=== PATIENT | female | born 1955 | race Caucasian/White ===

== ENCOUNTER 2017-02-21 20:04 | Emergency (ER) | payer BC ==
[~2017-02-21] VITALS: Ht 160 cm; Wt 81.6 kg
[~2017-02-21 20:04] MED LIST: CLOP75TA28; METO50TA2
--- NOTE | 2017-02-21 20:37 | Diagnostic Imaging Report ---
INDICATION: Right-sided headaches Noncontrast brain CT is performed with comparison to 10/19/16. There are mild atrophic changes. There were no extra-axial fluid collections. No intracranial hemorrhage. No intracranial mass or mass effect. No midline shift. The ventricles are normal in size and position. There is no acute parenchymal abnormality in the brain. Calvarial windows were unremarkable. IMPRESSION: Mild chronic changes with no acute intracranial abnormality. Dictated by: Dictated on workstation # [id number]
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
[2017-02-21] MEDS ORDERED: cloNIDine 0.2 MG (CATAPRES) TAB PO ONE (20:45)
[2017-02-21 20:54] VITALS: BP 172/72
[2017-02-21] MEDS ORDERED: ACETAMINOPHEN 500 MG TAB (TYLENOL) PO ONE (21:00)
[2017-02-21 21:25] VITALS: BP 144/63
--- OUTSIDE RECORDS SUMMARY | 2017-03-29 05:33 | XMS REPORT ---
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 Name Role Phone ANIKA GODWIN Unavailable PROBLEMS Type Condition ICD9-CM Code [id number] Code Onset Dates Condition Status SNOMED Code Assessment Contact dermatitis due to plants, except food, unspecified contact dermatitis type L25.5 Jul, Active [id number] ALLERGIES Substance Reaction Event Type Date Status Valium Unknown Drug Allergy Jul, Active SulfADIAZINE Unknown Drug Allergy Jul, Active Pravastatin Sodium Unknown Drug Allergy Jul, Active Penicillin G Sodium Unknown Drug Allergy Jul, Active SOCIAL HISTORY No smoking Hx information available PLAN OF CARE VITAL SIGNS Height 63 in 2016-07-31 Weight 174.4 lbs 2016-07-31 Heart Rate 84 bpm 2016-07-31 Respiratory Rate 22 2016-07-31 BMI 30.89 kg/m2 2016-07-31 Blood pressure systolic 150 mmHg 2016-07-31 Blood pressure diastolic 78 mmHg 2016-07-31 MEDICATIONS Medication Instructions Dosage Frequency Start Date End Date Duration Status Metoprolol Succinate ER 50 MG Orally Once a day 1 tablet 24h Active PredniSONE 20 MG Orally 2 tablets daily x 5 days 1 tablet Jul, Jul, 5 days Active Plavix 75 MG Orally Once a day 1 tablet 24h Active Triamcinolone Acetonide 0.1 % Externally Twice a day 1 application to affected area 12h Jul, 5 days Active RESULTS No Results PROCEDURES Procedure Date Ordered Related Diagnosis Body Site Office Visit, New Pt., Level 3 Jul 31, 2016 IMMUNIZATIONS No Known Immunizations
== END 2017-02-21 21:24 | disposition home or self-care (01) ==
LOC: EDUNIT# 20:04 → ER 20:07
DX: G44.209 Tension-type headache, unspecified, not intractable (principal); F41.9 Anxiety disorder, unspecified; F43.9 Reaction to severe stress, unspecified; I10 Essential (primary) hypertension; I25.10 Atherosclerotic heart disease of native coronary artery without angina pectoris; F17.210 Nicotine dependence, cigarettes, uncomplicated; Z79.899 Other long term (current) drug therapy; Z79.02 Long term (current) use of antithrombotics/antiplatelets; Z95.1 Presence of aortocoronary bypass graft
CPT/HCPCS: 70450; 99283

== ENCOUNTER 2017-07-03 19:13 | Emergency (ER) | payer BC ==
[~2017-07-03] VITALS: Ht 160 cm; Wt 84.4 kg
[2017-07-03 20:24] LABS: BASOPHILS # (AUTO) 0.1 10^3/uL (0.0-0.1); BASOPHILS % (AUTO) 1 % (0-10); EOSINOPHILS # (AUTO) 0.2 10^3/uL (0.0-0.3); EOSINOPHILS % (AUTO) 1 % (0-10); LYMPHOCYTES # (AUTO) 3.4 X 10^3 (1.0-4.0); LYMPHOCYTES % (AUTO) 29 % (12-44); MEAN CORPUSCULAR HEMOGLOBIN 33 PG (25-34); MEAN CORPUSCULAR HGB CONC 34 G/DL (32-36); MEAN CORPUSCULAR VOLUME 96 FL (80-99); MEAN PLATELET VOLUME 9.8 FL (7.4-10.4); MONOCYTES % (AUTO) 9 % (0-12); NEUTROPHILS # (AUTO) 7.1 X 10^3 (1.8-7.8); NEUTROPHILS % (AUTO) 61 % (42-75); PLATELET COUNT 275 10^3/uL (130-400); RED BLOOD COUNT 4.32 10^6/uL (4.35-5.85); RED CELL DISTRIBUTION WIDTH 13.4 % (10.0-14.5); WHITE BLOOD COUNT 11.7 10^3/uL (4.3-11.0)
[2017-07-03 20:28] LABS: BILIRUBIN,URINE NEGATIVE (NEGATIVE); KETONES,URINE NEGATIVE (NEGATIVE); LEUKOCYTE ESTERASE ,URINE NEGATIVE (NEGATIVE); NITRITE,URINE NEGATIVE (NEGATIVE); PH,URINE 6.5 (5-9); PROTEIN,URINE NEGATIVE (NEGATIVE); UROBILINOGEN,URINE NORMAL (NORMAL)
--- NOTE | 2017-07-03 20:30 | Diagnostic Imaging Report ---
INDICATION: Overdose. TIME OF EXAM: 2021. COMPARISON: No previous study is available for comparison at this time. FINDINGS: Heart size and pulmonary vasculature are within normal limits, and the lungs are clear, bilaterally. IMPRESSION: Unremarkable chest. Dictated by: Dictated on workstation # [id number]
[2017-07-03 20:40] LABS: SQUAMOUS EPITHELIAL CELL,UR RARE /HPF
[2017-07-03 20:42] LABS: ALANINE AMINOTRANSFERASE 13 U/L (0-55); ALBUMIN 4.3 GM/DL (3.2-4.5); ANION GAP 13 MMOL/L (5-14); ASPARTATE AMINO TRANSFERASE 15 U/L (5-34); BILIRUBIN,TOTAL 0.5 MG/DL (0.1-1.0); BLOOD UREA NITROGEN 9 MG/DL (7-18); BUN/CREATININE RATIO 13; CALCIUM 9.3 MG/DL (8.5-10.1); CARBON DIOXIDE 21 MMOL/L (21-32); CHLORIDE 108 MMOL/L (98-107); CREATININE SERUM 0.71 MG/DL (0.60-1.30); GFR ESTIMATED > 60; GLUCOSE 95 MG/DL (70-105); POTASSIUM 3.7 MMOL/L (3.6-5.0); SODIUM 142 MMOL/L (135-145); TOTAL PROTEIN 7.6 GM/DL (6.4-8.2)
[2017-07-03 20:47] LABS: TROPONIN I < 0.30 NG/ML (<0.30)
[2017-07-03] MEDS ORDERED: ACETAMINOPHEN 500 MG TAB (TYLENOL) ONE (22:03)
[2017-07-03] MEDS ORDERED: ACETAMINOPHEN 500 MG TAB (TYLENOL) PO ONE (22:15)
--- NOTE | 2017-07-03 22:31 | ED Syncope ---
General Chief Complaint: Dizziness/Syncope Stated Complaint: BLACKED OUT Nursing Triage Note: Ambulatory to ED 10 with family with reports of "blacking out" [facility] Patient reports that she was sitting down, noticed that she started not feeling well and "blacked out, but came right back to." Patient reports that she remembers all events and denies hitting her head. Patient reports that she was able to ambulate after and went back home with family, but wanted to get checked out. Patient reports feeling somewhat normal now. Source of Information: Patient, Old Records Exam Limitations: No Limitations History of Present Illness Time Seen by Provider: 19:45 Initial Comments This 61-year-old woman presents to the emergency room with a near syncopal episode while at the [facility] tonight 20-30 minutes after taking her metoprolol dose. She normally takes a half tablet and reports the tablet she took this evening was larger than one half. It was approximately three fourths of a tablet. She is sensitive to medications and wonders if this larger dose may have caused the symptoms. She also reports eating poorly today, eating only one and a half donuts earlier in the day. She denies diabetes or problems with blood sugar. She feels much better now and is asymptomatic. She was also feeling well prior to the episode. She did not actually lose consciousness but came close. She bumped her head on the screen in front of her but denies any head injury. She does comment about having chest pain intermittently over the past 10 years on the right side. She relates this to COPD. She denies any change and denies chest pain at present. She does have a history of carotid stenosis which she gets checked every 6 months. She is actually due for repeat scans next week. She reports her last cardiac catheter was 3 years ago in [place] without interventions. She has a continuous tobacco user. She has a vasculopath who has aortic and iliac stents. Dr. Dwaine Whittaker is her primary care provider. Allergies and Home Medications Allergies Coded Allergies: hydrocodone (Verified Allergy, Unknown, 10/19/16) morphine (Verified Allergy, Unknown, 10/19/16) Uncoded Allergies: MULTIPLE ANTIBIOTICS (Allergy, Unknown, 10/19/16) Home Medications Clopidogrel Bisulfate 75 Mg Tablet, #30 (Reported) Metoprolol Tartrate 50 Mg Tablet, #60 (Reported) Constitutional: no symptoms reported EENTM: no symptoms reported Respiratory: see HPI Cardiovascular: see HPI Gastrointestinal: no symptoms reported Genitourinary: no symptoms reported : No Musculoskeletal: no symptoms reported Skin: no symptoms reported Psychiatric/Neurological: See HPI Past Zbqkgde-Xxpiep-Dinlhk Hx Patient Social History Alcohol Use: Denies Use Recreational Drug Use: No Smoking Status: Current Everyday Smoker Type Used: Cigarettes 2nd Hand Smoke Exposure: Yes Recent Foreign Travel: No Contact w/Someone Who Travel: No Recent Infectious Disease Expo: No Recent Hopitalizations: No Immunizations Up To Date Tetanus Booster (TDap): Unknown Seasonal Allergies Seasonal Allergies: No Surgeries HX Surgeries: Yes (iliac and aortic stentsBILATERAL ILIAC STENTS AND AORTIC STENT; ; BREAST BIOPSY; L KNEE) Surgeries: Appendectomy, Breast, Cardiac (cardiac catheterization), Orthopedic , Vascular Surgery Respiratory Hx Respiratory Disorders: Yes (tobaccoism) Cardiovascular Hx Cardiac Disorders: Yes (CAROTID DISEASE; ILIAC AND AORTIC STENTS) Cardiac Disorders: Coronary Artery Disease, High Cholesterol, Hypertension, Peripheral Vascular Neurological Hx Neurological Disorders: Yes (occasional headaches.) Neurological Disorders: Headaches /Migraines 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 Genitourinary Hx Genitourinary Disorders: No Gastrointestinal Hx Gastrointestinal Disorders: No Musculoskeletal Hx Musculoskeletal Disorders: No Endocrine Hx Endocrine Disorders: No HEENT HX ENT Disorders: Yes HEENT Disorders: Cataract Cancer Hx Cancer: No Psychosocial Hx Psychiatric Problems: No Integumentary HX Skin/Integumentary Disorder: No Blood Transfusions Hx Blood Disorders: No Family Medical History Significant Family History: No Pertinent Family Hx Physical Exam Vital Signs Vital Sign - Last 12Hours 07/03/ 19:29 Temp 98.5 Pulse 75 Resp 16 B/P (MAP) 192/89 Pulse Ox 96 O2 Delivery Room Air Capillary Refill : Less Than 3 Seconds General Appearance: No Apparent Distress HEENT: PERRL/EOMI, Normal ENT Inspection Neck: Normal Inspection, No Carotid Bruit Cardiovascular: Regular Rate, Rhythm, No Edema, No Murmur, Normal Peripheral Pulses, No JVD Respiratory: Chest Non Tender, Lungs Clear, Normal Breath Sounds, No Accessory Muscle Use, No Respiratory Distress Gastrointestinal: Normal Bowel Sounds, Non Tender, Soft Extremities: Normal Inspection, No Pedal Edema Neurologic/Psychiatric: Alert, Oriented x3, No Motor/Sensory Deficits, Normal 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, 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 Cranial Nerves: Normal Hearing, Normal Speech, PERRL Coordination/Gait: Normal Gait Motor/Sensory: No Motor Deficit, No Sensory Deficit, No Pronator Drift Skin: Normal Color, Warm/Dry Progress/Results/Core Measures Results/Orders Lab Results Laboratory Tests Test 07/03/17 20:03 07/03/17 20:15 Range/Units Urine Color YELLOW Urine Clarity CLEAR Urine pH 6.5 5-9 Urine Specific [place] 1.010 L 1.016-1.022 Urine Protein NEGATIVE NEGATIVE Urine Glucose (UA) NEGATIVE NEGATIVE Urine Ketones NEGATIVE NEGATIVE Urine Nitrite NEGATIVE NEGATIVE Urine Bilirubin NEGATIVE NEGATIVE Urine Urobilinogen NORMAL NORMAL MG/DL Urine Leukocyte Esterase NEGATIVE NEGATIVE Urine RBC (Auto) NEGATIVE NEGATIVE Urine RBC NONE /HPF Urine WBC NONE /HPF Urine Squamous Epithelial Cells RARE /HPF Urine Crystals NONE /LPF Urine Bacteria NONE /HPF Urine Casts NONE /LPF Urine Mucus NEGATIVE /LPF Urine Culture Indicated NO White Blood Count 11.7 H 4.3-11.0 10^3/uL Red Blood Count 4.32 L 4.35-5.85 10^6/uL Hemoglobin 14.1 11.5-16.0 G/DL Hematocrit 42 35-52 % Mean Corpuscular Volume 96 80-99 FL Mean Corpuscular Hemoglobin 33 25-34 PG Mean Corpuscular Hemoglobin Concent 34 32-36 G/DL Red Cell Distribution Width 13.4 10.0-14.5 % Platelet Count 275 130-400 10^3/uL Mean Platelet Volume 9.8 7.4-10.4 FL Neutrophils (%) (Auto) 61 42-75 % Lymphocytes (%) (Auto) 29 12-44 % Monocytes (%) (Auto) 9 0-12 % Eosinophils (%) (Auto) 1 0-10 % Basophils (%) (Auto) 1 0-10 % Neutrophils # (Auto) 7.1 1.8-7.8 X 10^3 Lymphocytes # (Auto) 3.4 1.0-4.0 X 10^3 Monocytes # (Auto) 1.0 0.0-1.0 X 10^3 Eosinophils # (Auto) 0.2 0.0-0.3 10^3/uL Basophils # (Auto) 0.1 0.0-0.1 10^3/uL Sodium Level 142 135-145 MMOL/L Potassium Level 3.7 3.6-5.0 MMOL/L Chloride Level 108 H 98-107 MMOL/L Carbon Dioxide Level 21 21-32 MMOL/L Anion Gap 13 5-14 MMOL/L Blood Urea Nitrogen 9 7-18 MG/DL Creatinine 0.71 0.60-1.30 MG/DL Estimat Glomerular Filtration Rate > 60 BUN/Creatinine Ratio 13 Glucose Level 95 70-105 MG/DL Calcium Level 9.3 8.5-10.1 MG/DL Magnesium Level 2.0 1.8-2.4 MG/DL Total Bilirubin 0.5 0.1-1.0 MG/DL Aspartate Amino Transf (AST/SGOT) 15 5-34 U/L Alanine Aminotransferase (ALT/SGPT) 13 0-55 U/L Alkaline Phosphatase 73 40-136 U/L Troponin I < 0.30 <0.30 NG/ML Total Protein 7.6 6.4-8.2 GM/DL Albumin 4.3 3.2-4.5 GM/DL My Orders Orders - YOJANA ANGUIANO MD Chest 1 View, Ap/Pa Only (07/03/17 19:52) Cbc With Automated Diff (07/03/17 19:52) Comprehensive Metabolic Panel (07/03/17 19:52) Magnesium (07/03/17 19:52) Troponin I (07/03/17 19:52) Ua Culture If Indicated (07/03/17 19:52) Saline Lock/Iv-Start (07/03/17 19:52) Ekg Tracing (07/03/17 19:52) Monitor-Rhythm Ecg Trace Only (07/03/17 19:52) Orthostatic Vital Signs (07/03/17 19:52) Us Carotid Garry Complete [id number] (07/03/17 20:49) Acetaminophen Tablet (Tylenol Tablet) (07/03/17 22:15) Acetaminophen Tablet (Tylenol Tablet) (07/03/17 22:03) Medications Given in ED Vital Signs/I&O Vital Sign - Last 12Hours 07/03/17 07/03/17 07/03/17 07/03/17 19:29 20:29 22:09 22:11 Temp 98.5 98.5 98.5 Pulse 75 73 72 75 Resp 16 B/P (MAP) 192/89 Pulse Ox 96 O2 Delivery Room Air 07/03/17 22:38 Temp 98.5 Pulse 84 Resp 18 Pulse Ox 98 O2 Delivery Room Air Blood Pressure Mean: 123 Progress Note : Progress Note Workup was essentially unremarkable. Patient had no further episodes of syncope or near syncope. Case was reviewed with Dr. Dwaine Whittaker who agrees with discharge home for outpatient follow-up. Ultrasound showed no progression of stenosis. Patient did remarkable about chest pain but she was very clear that this pain has been present intermittently for 10 years and has been worked up previously. She denies any new chest pain. ECG Initial ECG Impression Date: Jul 03, 2017 Initial ECG Impression Time: 20:09 Initial ECG Rate: 74 Initial ECG Rhythm: Normal Sinus Initial ECG Intervals: Normal Initial ECG Impression: Normal Comment Normal sinus rhythm with no ST elevation or depression. No abnormal intervals or axis deviation. Diagnostic Imaging Diagonstic Imaging: Xray Plain Films/CT/US/NM/MRI: chest Comments Chest x-ray viewed by me and report reviewed. See report below: NAME: PALOMA IVORY MED REC#: [id number] PT STATUS: REG ER : 1955 PHYSICIAN: YOJANA ANGUIANO MD ADMIT DATE: 07/03/17/ER Signed Date of Exam: 07/03/17 CHEST 1 VIEW, AP/PA ONLY INDICATION: Overdose. TIME OF EXAM: 2021. COMPARISON: No previous study is available for comparison at this time. FINDINGS: Heart size and pulmonary vasculature are within normal limits, and the lungs are clear, bilaterally. IMPRESSION: Unremarkable chest. Dictated by: Dictated on workstation # [id number] Dict: 07/03/172027 Trans: 07/03/172210 Interpreted by: ROOSEVELT KYLE MD Electronically signed by: ROOSEVELT KYLE MD 07/03/172210 Diagonstic Imaging: Ultrasound Comments Carotid ultrasound discussed with the helpdesk technician and [employer] report reviewed. No significant stenosis on the right. Stenosis on the left up to 80 percent unchanged from prior. Departure Impression Impression: Primary Impression: Near syncope Disposition: 01 HOME, SELF-CARE Condition: Improved Departure-Patient Inst. Decision time for Depature: 22:25 Referrals: DWAINE WHITTAKER MD (PCP/Family) Primary Care Physician Patient Instructions: Syncope (Fainting) (DC) Add. Discharge Instructions: Drink plenty of clear liquids. Work toward quitting smoking. Follow-up with Dr. Whittaker as soon as possible. Keep your appointments for the arterial scans next week and see your felt finishing supervisor as soon as possible. Return to the emergency room if symptoms worsen. All discharge instructions reviewed with patient and/or family. Voiced understanding. Copy Copies To 1: DWAINE WHITTAKER MD, JOSHUA T MD Jul 03, 2017 22:31
[2017-07-03 22:38] VITALS: BP 157/74
--- NOTE | 2017-07-04 07:22 | Diagnostic Imaging Report ---
PROCEDURE: US Carotid Duplex Bilateral. TECHNIQUE: Multiple real-time grayscale images were obtained over the carotid arteries in various projections bilaterally. Additional duplex Doppler and color Doppler images were also obtained. INDICATION: Syncope FINDINGS: Grayscale images demonstrate mild to moderate bilateral carotid plaques, left greater than right. There are elevated velocities in the left internal carotid artery up to 209 cm/s. The ICA/CCA ratio on the left is 2.6. There are no focally elevated velocities on the right. ICA/CCA ratio on the right is 1.6. There is antegrade flow in both vertebral arteries. IMPRESSION: Spectral analysis correlates with a 60-79% stenosis in the left internal carotid artery. Recommend clinical correlation and if warranted followup with CTA. No significant stenosis in the right internal carotid artery. Dictated by: Dictated on workstation # [id number]
== END 2017-07-03 22:38 | disposition home or self-care (01) ==
LOC: EDUNIT# 19:13 → ER 19:15
DX: R55 Syncope and collapse (principal); I25.10 Atherosclerotic heart disease of native coronary artery without angina pectoris; E78.00 Pure hypercholesterolemia, unspecified; I10 Essential (primary) hypertension; I73.9 Peripheral vascular disease, unspecified; G43.909 Migraine, unspecified, not intractable, without status migrainosus; F17.210 Nicotine dependence, cigarettes, uncomplicated; Z95.820 Peripheral vascular angioplasty status with implants and grafts; Z90.49 Acquired absence of other specified parts of digestive tract; Z95.5 Presence of coronary angioplasty implant and graft
CPT/HCPCS: 36415; 71010; 80053; 81000; 83735; 84484; 85025; 93005; 93041; 93880

== ENCOUNTER → 2017-07-09 | Outpatient (CLI) | payer BC ==
--- NOTE | 2017-07-09 19:13 | Diagnostic Imaging Report ---
EXAMINATION: Left hip at 11:28 a.m. INDICATION: Hip pain. AP and lateral views were obtained. There are no prior studies available for comparison. FINDINGS: There is no fracture, dislocation, or acute bony abnormality evident. However, there is severe degenerative disease involving the hip joint. Specifically, the superolateral aspect of the joint space is narrowed, and there is sclerosis of the opposing surfaces of the femoral head and the acetabulum. Subchondral cyst formation within the acetabulum is noted as well. The soft tissues are unremarkable. IMPRESSION: 1. There is no evidence for an acute bony abnormality. 2. There is severe degenerative disease involving the hip joint. Dictated by: Dictated on workstation # [id number]
--- NOTE | 2017-07-09 19:20 | Diagnostic Imaging Report ---
EXAMINATION: Left knee at 11:29 p.m. INDICATION: Knee pain. Three views were obtained. FINDINGS: There is no fracture, dislocation, or acute bony abnormality evident. There is narrowing of the lateral compartment of the knee joint and the patellofemoral space. The medial compartment is fairly well maintained. The soft tissues are unremarkable. IMPRESSION: 1. There is no evidence for acute bony abnormality. 2. There is degenerative disease involving the lateral compartment and the patellofemoral space. Dictated by: Dictated on workstation # [id number]
== END ==
LOC: RAD 10:35
PROVIDERS: ATTEND Family Medicine
DX: M16.12 Unilateral primary osteoarthritis, left hip (principal); M17.12 Unilateral primary osteoarthritis, left knee
CPT/HCPCS: 73502; 73562

== ENCOUNTER 2017-10-25 11:38 | Emergency (ER) | payer BC ==
[~2017-10-25] VITALS: Ht 160 cm; Wt 84.4 kg
[~2017-10-25 11:38] MED LIST changes: +METO50TA15; -METO50TA2
[2017-10-25] MEDS ORDERED: LISI10TA2 PO (12:15)
[2017-10-25] MEDS ORDERED: ASPI-586 PO (12:15)
[2017-10-25 12:28] LABS: BASOPHILS # (AUTO) 0.1 10^3/uL (0.0-0.1); BASOPHILS % (AUTO) 1 % (0-10); EOSINOPHILS # (AUTO) 0.2 10^3/uL (0.0-0.3); EOSINOPHILS % (AUTO) 2 % (0-10); LYMPHOCYTES # (AUTO) 4.1 X 10^3 (1.0-4.0); LYMPHOCYTES % (AUTO) 51 % (12-44); MEAN CORPUSCULAR HEMOGLOBIN 32 PG (25-34); MEAN CORPUSCULAR HGB CONC 33 G/DL (32-36); MEAN CORPUSCULAR VOLUME 97 FL (80-99); MEAN PLATELET VOLUME 9.5 FL (7.4-10.4); MONOCYTES # (AUTO) 0.8 X 10^3 (0.0-1.0); MONOCYTES % (AUTO) 10 % (0-12); NEUTROPHILS # (AUTO) 2.9 X 10^3 (1.8-7.8); NEUTROPHILS % (AUTO) 36 % (42-75); PLATELET COUNT 282 10^3/uL (130-400); RED BLOOD COUNT 4.27 10^6/uL (4.35-5.85); RED CELL DISTRIBUTION WIDTH 13.5 % (10.0-14.5)
--- NOTE | 2017-10-25 12:28 | Diagnostic Imaging Report ---
PROCEDURE: CT head and neck without contrast. TECHNIQUE: Contiguous axial images were obtained from the skull base through the vertex. Noncontrast axial images were then obtained of the soft tissue of the neck. INDICATION: Headache. Visual changes. Carotid stent placement 6 weeks ago. COMPARISON: CT head without contrast 02/21/2017. FINDINGS: CT head: No intracranial hemorrhage, mass effect, hydrocephalus or extra-axial fluid collections. No CT evidence of acute infarction. Mild generalized cerebral and cerebellar parenchymal volume loss is age appropriate. No fractures. The paranasal sinuses and mastoids are clear. CT cervical spine: Reversal of the normal cervical lordosis. Alignment is otherwise unremarkable. There are mild degenerative endplate changes which are more moderate at C5-C6. Mild facet arthropathy. No high-grade spinal canal or neuroforaminal narrowing. Vertebral body heights are preserved. No fractures. Vascular stent at the left carotid bifurcation. Mild atherosclerotic calcifications in the right carotid bifurcation. The visualized paravertebral soft tissues are otherwise unremarkable. IMPRESSION: 1. No acute intracranial CT findings. 2. Reversal of the normal cervical lordosis may be positional or due to muscle spasm. No evidence of cervical spine fracture. Dictated by: Dictated on workstation # [id number]
[2017-10-25 12:30] VITALS: BP 179/86
[2017-10-25 12:36] LABS: INR 0.9 (0.8-1.4); PROTHROMBIN TIME PATIENT 12.7 SEC (12.2-14.7)
[2017-10-25 12:46] LABS: ALANINE AMINOTRANSFERASE 9 U/L (0-55); ANION GAP 11 MMOL/L (5-14); ASPARTATE AMINO TRANSFERASE 14 U/L (5-34); BILIRUBIN,TOTAL 0.4 MG/DL (0.1-1.0); BLOOD UREA NITROGEN 10 MG/DL (7-18); BUN/CREATININE RATIO 14; CALCIUM 8.9 MG/DL (8.5-10.1); CARBON DIOXIDE 22 MMOL/L (21-32); CHLORIDE 107 MMOL/L (98-107); GFR ESTIMATED > 60; GLUCOSE 90 MG/DL (70-105); SODIUM 140 MMOL/L (135-145); TOTAL PROTEIN 7.3 GM/DL (6.4-8.2)
[2017-10-25 12:51] LABS: TROPONIN I < 0.30 NG/ML (<0.30)
--- NOTE | 2017-10-25 13:13 | Diagnostic Imaging Report ---
PROCEDURE: US Carotid Duplex Bilateral. TECHNIQUE: Multiple real-time grayscale images were obtained over the carotid arteries in various projections bilaterally. Additional duplex Doppler and color Doppler images were also obtained. INDICATION: Visual disturbance in the right eye. Recent stent placement in the left ICA. COMPARISON: Carotid Doppler 07/03/2017. FINDINGS: Right: Atherosclerotic plaque appears to result in less than 50% narrowing of the right internal carotid artery origin. Peak systolic velocities correspond to a 60-79% stenosis. Antegrade flow within the right vertebral artery. Left: The left internal carotid artery origin stent is in place and is widely patent. There is borderline elevated velocities in the distal left internal carotid artery. It is unclear if this is within the stent or distal to it. Antegrade flow in the left vertebral artery. IMPRESSION: 1. Findings in the right carotid artery origin correspond to 60-79% stenosis. 2. The left internal carotid artery origins stent appears widely patent. There are borderline peak systolic velocities in the distal internal carotid artery. The ICA to CCA ratio remains within normal limits. Dictated by: Dictated on workstation # [id number]
[2017-10-25 13:21] LABS: BILIRUBIN,URINE NEGATIVE (NEGATIVE); KETONES,URINE NEGATIVE (NEGATIVE); LEUKOCYTE ESTERASE ,URINE NEGATIVE (NEGATIVE); NITRITE,URINE NEGATIVE (NEGATIVE); PH,URINE 5 (5-9); PROTEIN,URINE NEGATIVE (NEGATIVE); UROBILINOGEN,URINE NORMAL (NORMAL)
[2017-10-25] MEDS ORDERED: ORPHENADRINE 60 MG/2 ML (NORFLEX) AMP IV ONE (13:30)
[2017-10-25] MEDS ORDERED: KETOROLAC 30 MG/ML VIAL IVP ONE (13:30)
--- NOTE | 2017-10-25 13:43 | ED Neurological Problem ---
General Chief Complaint: Neuro-Stroke Like Symptoms Stated Complaint: R SIDE NECK/HEAD PAIN/R EYE VISION BLURRY Nursing Triage Note: pt reports pain in l side of neck, blurred vision while at the [employer] today. pt reports stints in aorta, stomach, L carotid, R and L sides of iliac six weeks ago. Nursing Sepsis Screen: No Definite Risk Source: patient Exam Limitations: no limitations History of Present Illness Time seen by provider: 12:02 Initial Comments This 61-year-old woman presents to the emergency room with complaints of right- sided blurry vision and pain in the right neck that radiates up toward the ear. Symptoms started about 35 minutes prior to arrival (about 11:00) while she was playing games at the [employer] Her symptoms have improved some now but she still has some slight blurry vision. She is uncertain how different this is then her chronic because she has cataracts and requires glasses. She is not wearing her glasses at present. She denies any field of vision changes. She had a carotid stent placed about 6 weeks ago on the left. Stroke activation was paged after my assessment as patient had right-sided blurry vision and a recent placement of a stent on the left. Patient reports good compliance with her Plavix but she held aspirin last week due to GI upset. Allergies and Home Medications Allergies Coded Allergies: iodine (Verified Allergy, Severe, 10/25/17) hydrocodone (Verified Allergy, Unknown, 10/19/16) morphine (Verified Allergy, Unknown, 10/19/16) Uncoded Allergies: IV DYE (Allergy, Severe, 10/25/17) MULTIPLE ANTIBIOTICS (Allergy, Unknown, 10/19/16) Home Medications Aspirin 81 Mg Tablet.dr, 81 MG PO, (Reported) Clopidogrel Bisulfate 75 Mg Tablet, #30 (Reported) Lisinopril 10 Mg Tablet, 10 MG PO DAILY, (Reported) Metoprolol Tartrate 50 Mg Tablet, #60 (Reported) Constitutional: no symptoms reported Eyes: See HPI Ears, Nose, Mouth, Throat: no symptoms reported Respiratory: no symptoms reported Cardiovascular: see HPI Gastrointestinal: see HPI Genitourinary: no symptoms reported : No Musculoskeletal: no symptoms reported Skin: no symptoms reported Psychiatric/Neurological: See HPI Endocrine: No Symptoms Reported Hematologic/Lymphatic: No Symptoms Reported Past Cdqdrks-Eejafd-Ttvvvl Hx Patient Social History Alcohol Use: Denies Use Recreational Drug Use: No Smoking Status: Current Everyday Smoker Type Used: Cigarettes 2nd Hand Smoke Exposure: Yes Recent Foreign Travel: No Contact w/Someone Who Travel: No Recent Infectious Disease Expo: No Recent Hopitalizations: No Physical Abuse: No Sexual Abuse: No Mistreated: No Fear: No Immunizations Up To Date Tetanus Booster (TDap): Unknown Seasonal Allergies Seasonal Allergies: No Surgeries History of Surgeries: Yes (BILATERAL ILIAC STENTS AND AORTIC STENT; ; BREAST BIOPSY; L KNEE) Surgeries: Appendectomy, Breast, Cardiac, Orthopedic, Vascular Surgery (left CEA) Respiratory History of Respiratory Disorde: Yes (tobaccoism) Cardiovascular History of Cardiac Disorders: Yes (CAROTID DISEASE; ILIAC AND AORTIC STENTS) Cardiac Disorders: Coronary Artery Disease, High Cholesterol, Hypertension, Peripheral Vascular (carotid stenosis) Neurological History of Neurological Disord: Yes (occasional headaches.) Neurological Disorders: Headaches /Migraines 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 Genitourinary History of Genitourinary Disor: No Gastrointestinal History of Gastrointestinal Di: No Musculoskeletal History of Musculoskeletal Dis: No Endocrine History of Endocrine Disorders: No HEENT History of HEENT Disorders: Yes HEENT Disorders: Cataract Cancer History of Cancer: No Psychosocial History of Psychiatric Problem: No Suicide Risk Score: 0 Integumentary History of Skin or Integumenta: No Blood Transfusions History of Blood Disorders: No Family Medical History Significant Family History: No Pertinent Family Hx Physical Exam Vital Signs Vital Sign - Last 12Hours 10/25/17 12:00 Temp 98.3 Pulse 78 Resp 13 B/P (MAP) 179/86 (117) Pulse Ox 99 Capillary Refill : Less Than 3 Seconds General Appearance: WD/WN, no apparent distress HEENT: PERRL/EOMI, normal ENT inspection, TMs normal, pharynx normal Neck: normal inspection Respiratory: lungs clear, normal breath sounds, no respiratory distress, no accessory muscle use Cardiovascular: regular rate, rhythm, no edema, no murmur Gastrointestinal: normal bowel sounds, non tender, soft Extremities: normal inspection, no pedal edema 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, no motor/sensory deficits, alert, normal mood/affect, oriented x 3 Crainal Nerves: normal hearing, normal speech, PERRL, other (peripheral vision is intact bilaterally with no field of vision deficits.) Coordination/Gait: normal finger to nose, normal gait Motor/Sensory: no motor deficit Skin: normal color, warm/dry Stroke Onset of Symptoms Date of Onset of Symptoms: Oct 25, 2017 NIH Stroke Scale Assessment Level of Consciousness: 0=Alert (0), Level of Consciousness-Questions: 0= Answers both month/age (0), LOC Commands: 0=Performs both tasks (0), Visual Nuñez: 0=No visual loss (0), Facial Movement (Facial Paresis): 0=Normal symmetrical mnt (0), Motor Function-Arms Right: 0=No drift (0), Motor Function- Arms Left: 0=No drift (0), Motor Function-Legs Right: 0=No drift (0), Motor Function-Legs Left: 0=No drift (0), Limb Ataxia: 0=Absent (0), Sensory: 0=Normal :no loss (0), Best Language: 0=No aphasia (0), Dysarthria: 0=Normal (0), Extinction & Inattention: 0=No abnormality (0), Total: 0 Stroke Thrombolytic Exclusion Age 18 or Over: Yes Intracranial Neoplasm/Aneurysm: No Recent CPR: No Diabetic Hemorrhagic Retinopat: No Recent Obstetric Delivery: No Significant Hepatic Dysfunctio: No Improving Symptoms: No Progress/Results/Core Measures Results/Orders Lab Results Laboratory Tests Test 10/25/17 12:20 10/25/17 13:07 Range/Units White Blood Count 8.0 4.3-11.0 10^3/uL Red Blood Count 4.27 L 4.35-5.85 10^6/uL Hemoglobin 13.7 11.5-16.0 G/DL Hematocrit 41 35-52 % Mean Corpuscular Volume 97 80-99 FL Mean Corpuscular Hemoglobin 32 25-34 PG Mean Corpuscular Hemoglobin Concent 33 32-36 G/DL Red Cell Distribution Width 13.5 10.0-14.5 % Platelet Count 282 130-400 10^3/uL Mean Platelet Volume 9.5 7.4-10.4 FL Neutrophils (%) (Auto) 36 L 42-75 % Lymphocytes (%) (Auto) 51 H 12-44 % Monocytes (%) (Auto) 10 0-12 % Eosinophils (%) (Auto) 2 0-10 % Basophils (%) (Auto) 1 0-10 % Neutrophils # (Auto) 2.9 1.8-7.8 X 10^3 Lymphocytes # (Auto) 4.1 H 1.0-4.0 X 10^3 Monocytes # (Auto) 0.8 0.0-1.0 X 10^3 Eosinophils # (Auto) 0.2 0.0-0.3 10^3/uL Basophils # (Auto) 0.1 0.0-0.1 10^3/uL Prothrombin Time 12.7 12.2-14.7 SEC INR Comment 0.9 0.8-1.4 Activated Partial Thromboplast Time 29 24-35 SEC D-Dimer 0.86 H 0.00-0.49 UG/ML Sodium Level 140 135-145 MMOL/L Potassium Level 4.0 3.6-5.0 MMOL/L Chloride Level 107 98-107 MMOL/L Carbon Dioxide Level 22 21-32 MMOL/L Anion Gap 11 5-14 MMOL/L Blood Urea Nitrogen 10 7-18 MG/DL Creatinine 0.70 0.60-1.30 MG/DL Estimat Glomerular Filtration Rate > 60 BUN/Creatinine Ratio 14 Glucose Level 90 70-105 MG/DL Calcium Level 8.9 8.5-10.1 MG/DL Total Bilirubin 0.4 0.1-1.0 MG/DL Aspartate Amino Transf (AST/SGOT) 14 5-34 U/L Alanine Aminotransferase (ALT/SGPT) 9 0-55 U/L Alkaline Phosphatase 75 40-136 U/L Troponin I < 0.30 <0.30 NG/ML Total Protein 7.3 6.4-8.2 GM/DL Albumin 4.0 3.2-4.5 GM/DL Urine Color YELLOW Urine Clarity CLEAR Urine pH 5 5-9 Urine Specific [place] 1.010 L 1.016-1.022 Urine Protein NEGATIVE NEGATIVE Urine Glucose (UA) NEGATIVE NEGATIVE Urine Ketones NEGATIVE NEGATIVE Urine Nitrite NEGATIVE NEGATIVE Urine Bilirubin NEGATIVE NEGATIVE Urine Urobilinogen NORMAL NORMAL MG/DL Urine Leukocyte Esterase NEGATIVE NEGATIVE Urine RBC (Auto) NEGATIVE NEGATIVE Urine RBC NONE /HPF Urine WBC NONE /HPF Urine Squamous Epithelial Cells 5-10 /HPF Urine Crystals NONE /LPF Urine Bacteria NEGATIVE /HPF Urine Casts NONE /LPF Urine Mucus NEGATIVE /LPF Urine Culture Indicated NO My Orders Orders - YOJANA ANGUIANO MD Cbc With Automated Diff (10/25/17 12:22) Protime With Inr (10/25/17 12:22) Partial Thromboplastin Time (10/25/17 12:22) Comprehensive Metabolic Panel (10/25/17 12:22) Fibrin Degradation Products (10/25/17 12:22) Troponin I (10/25/17 12:22) Ua Culture If Indicated (10/25/17 12:22) Ekg Tracing (10/25/17 12:22) Nothing By Mouth (10/25/17 Dinner) Accucheck Stat ONCE (10/25/17 12:22) Saline Lock/Iv-Start (10/25/17 12:22) Saline Lock/Iv-Start (10/25/17 12:22) Vital Signs - Stroke Q15M (10/25/17 12:22) O2 (10/25/17 12:22) Intake & Output 06,14,22 (10/25/17 12:22) Monitor-Rhythm Ecg Trace Only (10/25/17 12:22) Dysphagia Screening Tool (10/25/17 12:22) Ketorolac Injection (Toradol Injection) (10/25/17 13:30) Orphenadrine Injection (Norflex Injectio (10/25/17 13:30) Vital Signs/I&O Vital Sign - Last 12Hours 10/25/17 10/25/17 12:00 12:30 Temp 98.3 Pulse 78 78 Resp 13 13 B/P (MAP) 179/86 (117) 179/86 Pulse Ox 99 99 Blood Pressure Mean: 117 ECG Initial ECG Impression Date: Oct 25, 2017 Initial ECG Impression Time: 12:20 Initial ECG Rate: 75 Initial ECG Rhythm: Normal Sinus Initial ECG Intervals: Normal Initial ECG Impression: Normal Comment Normal sinus rhythm with no ST elevation or depression. No abnormal intervals or axis deviation. Diagnostic Imaging Diagonstic Imaging: CT Plain Films/CT/US/NM/MRI: head Comments CT head and neck viewed by me and report reviewed. See report below: NAME: PALOMA IVORY MED REC#: [id number] PT STATUS: REG ER : 1955 PHYSICIAN: MELISSA SOTO ADMIT DATE: 10/25/17/ER Draft Date of Exam:10/25/17 CT HEAD/NECK WO PROCEDURE: CT head and neck without contrast. TECHNIQUE: Contiguous axial images were obtained from the skull base through the vertex. Noncontrast axial images were then obtained of the soft tissue of the neck. INDICATION: Headache. Visual changes. Carotid stent placement 6 weeks ago. COMPARISON: CT head without contrast 02/21/2017. FINDINGS: CT head: No intracranial hemorrhage, mass effect, hydrocephalus or extra-axial fluid collections. No CT evidence of acute infarction. Mild generalized cerebral and cerebellar parenchymal volume loss is age appropriate. No fractures. The paranasal sinuses and mastoids are clear. CT cervical spine: Reversal of the normal cervical lordosis. Alignment is otherwise unremarkable. There are mild degenerative endplate changes which are more moderate at C5-C6. Mild facet arthropathy. No high-grade spinal canal or neuroforaminal narrowing. Vertebral body heights are preserved. No fractures. Vascular stent at the left carotid bifurcation. Mild atherosclerotic calcifications in the right carotid bifurcation. The visualized paravertebral soft tissues are otherwise unremarkable. IMPRESSION: 1. No acute intracranial CT findings. 2. Reversal of the normal cervical lordosis may be positional or due to muscle spasm. No evidence of cervical spine fracture. Dictated on workstation # [id number] Dict: 10/25/17 1218 Trans: 10/25/17 1227 [facility] [id number] Interpreted by: BRITANY WELLER MD Diagonstic Imaging: Ultrasound Comments NAME: PALOMA IVORY [facility] REC#: [id number] PT STATUS: REG ER : 1955 PHYSICIAN: MELISSA SOTO ADMIT DATE: 10/25/17/ER Draft Date of Exam:10/25/17 US CAROTID ARLENE COMPLETE [id number] PROCEDURE: US Carotid Duplex Bilateral. TECHNIQUE: Multiple real-time grayscale images were obtained over the carotid arteries in various projections bilaterally. Additional duplex Doppler and color Doppler images were also obtained. INDICATION: Visual disturbance in the right eye. Recent stent placement in the left ICA. COMPARISON: Carotid Doppler 07/03/2017. FINDINGS: Right: Atherosclerotic plaque appears to result in less than 50% narrowing of the right internal carotid artery origin. Peak systolic velocities correspond to a 60-79% stenosis. Antegrade flow within the right vertebral artery. Left: The left internal carotid artery origin stent is in place and is widely patent. There is borderline elevated velocities in the distal left internal carotid artery. It is unclear if this is within the stent or distal to it. Antegrade flow in the left vertebral artery. IMPRESSION: 1. Findings in the right carotid artery origin correspond to 60-79% stenosis. 2. The left internal carotid artery origins stent appears widely patent. There are borderline peak systolic velocities in the distal internal carotid artery. The ICA to CCA ratio remains within normal limits. Dictated on workstation # [id number] Dict: 10/25/17 1258 Trans: 10/25/17 1313 [facility] [id number] Interpreted by: BRITANY WELLER MD Departure Impression Impression: Primary Impression: Strain of right trapezius muscle Qualified Codes: S46.811A - Strain of other muscles, fascia and tendons at shoulder and upper arm level, right arm, initial encounter Additional Impressions: Change in vision Carotid artery stenosis Qualified Codes: I65.21 - Occlusion and stenosis of right carotid artery Disposition: 01 HOME, SELF-CARE Condition: Improved Departure-Patient Inst. Decision time for Depature: 13:39 Referrals: DARRYL WHITTAKER MD (PCP/Family) Primary Care Physician Patient Instructions: Carotid Artery Stenosis (DC) Add. Discharge Instructions: Continue to follow up with your doctor for regular scans of your carotid arteries. Work toward smoking cessation. Talk with your doctor about helping with quitting smoking. See your eye doctor as soon as possible to evaluate your vision. Return to the emergency room promptly or call 911 if you have any worsening of symptoms or any symptoms that could be related to stroke including confusion, difficulty speaking, drooping of the face, weakness or numbness, or any other unusual symptoms. You may take Tylenol (acetaminophen) up to 1000 mg every 6 hours for your shoulder pain. Gentle heat or icing in 20 minute intervals a be helpful in reducing the pain and tension in your shoulder muscles. All discharge instructions reviewed with patient and/or family. Voiced understanding. Copy Copies To 1: DARRYL WHITTAKER MD, JOSHUA T MD Oct 25, 2017 13:43
[2017-10-25 14:05] VITALS: BP 151/68
== END 2017-10-25 14:05 | disposition home or self-care (01) ==
LOC: EDUNIT# 11:38 → ER 11:40
DX: S46.811A Strain of other muscles, fascia and tendons at shoulder and upper arm level, right arm, initial encounter (principal); H57.8 Other specified disorders of eye and adnexa; I65.21 Occlusion and stenosis of right carotid artery; G43.909 Migraine, unspecified, not intractable, without status migrainosus; I25.10 Atherosclerotic heart disease of native coronary artery without angina pectoris; E78.00 Pure hypercholesterolemia, unspecified; I10 Essential (primary) hypertension; F17.210 Nicotine dependence, cigarettes, uncomplicated; Z90.49 Acquired absence of other specified parts of digestive tract; Z79.82 Long term (current) use of aspirin; Z95.828 Presence of other vascular implants and grafts; Z79.02 Long term (current) use of antithrombotics/antiplatelets
CPT/HCPCS: 36415; 70450; 70490; 80053; 81000; 84484; 85025; 85379; 85610; 85730; 93005; 93041; 93880

== ENCOUNTER 2017-12-25 19:20 | Emergency (ER) | payer BC ==
[~2017-12-25] VITALS: Ht 160 cm; Wt 84.4 kg
[~2017-12-25 19:20] MED LIST changes: +ASPI-586 PO; +LISI10TA2 PO
[2017-12-25] MEDS ORDERED: NITROGLYCERIN 0.4 MG SL TABS BTL 25'S SL PRN (19:45)
[2017-12-25] MEDS ORDERED: ASPIRIN 81 MG CHEW (CHILDREN'S ASA) PO ONE ×2 (19:45)
[2017-12-25 19:50] LABS: BASOPHILS # (AUTO) 0.1 10^3/uL (0.0-0.1); BASOPHILS % (AUTO) 1 % (0-10); EOSINOPHILS # (AUTO) 0.2 10^3/uL (0.0-0.3); EOSINOPHILS % (AUTO) 2 % (0-10); HEMATOCRIT 40 % (35-52); HEMOGLOBIN 13.9 G/DL (11.5-16.0); LYMPHOCYTES # (AUTO) 5.3 X 10^3 (1.0-4.0); LYMPHOCYTES % (AUTO) 54 % (12-44); MEAN CORPUSCULAR HEMOGLOBIN 33 PG (25-34); MEAN CORPUSCULAR HGB CONC 35 G/DL (32-36); MEAN CORPUSCULAR VOLUME 95 FL (80-99); MEAN PLATELET VOLUME 9.7 FL (7.4-10.4); MONOCYTES % (AUTO) 10 % (0-12); NEUTROPHILS # (AUTO) 3.3 X 10^3 (1.8-7.8); NEUTROPHILS % (AUTO) 34 % (42-75); PLATELET COUNT 301 10^3/uL (130-400); RED BLOOD COUNT 4.22 10^6/uL (4.35-5.85); RED CELL DISTRIBUTION WIDTH 13.6 % (10.0-14.5); WHITE BLOOD COUNT 9.8 10^3/uL (4.3-11.0)
[2017-12-25 20:01] LABS: INR 0.9 (0.8-1.4); PROTHROMBIN TIME PATIENT 12.2 SEC (12.2-14.7)
--- NOTE | 2017-12-25 20:01 | Diagnostic Imaging Report ---
INDICATION: [place] something burst in the chest. Pain. FINDINGS: Single view of the chest shows normal heart size and vascularity. The lungs are clear. There is no effusion or pneumothorax. There is no bony abnormality. IMPRESSION: No acute abnormality is seen with no change from 07/03/17. Dictated by: Dictated on workstation # [id number]
--- NOTE | 2017-12-25 20:04 | ED Abdominal Pain ---
General Chief Complaint: Cardiac/General Problems Stated Complaint: CHEST AND ABD PAIN/FELT LIKE SOMETHING BURST Nursing Triage Note: States 30 min ago was watching tv and felt something "burst in chest and it felt like water running everywhere". C/O epugastric pain no nauesea but was sob at time. 04/25 Sepsis Screen: No Definite Risk Source of Information: Patient History of Present Illness Date Seen by Provider: Dec 25, 2017 Time Seen by Provider: 19:35 Initial Comments PT ARRIVES VIA POV FROM HOME C/O CHEST/UPPER ABDOMEN PAIN --BEGAN 30 MINUTES AGO WHILE WATCHING TV STATES "IT FELT LIKE SOMETHING BURST AND IT FELT LIKE A SPRINKLER WAS GOING OFF INSIDE" THOSE SYMPTOMS ARE NOT OCCURRING NOW. PT STATES SHE HAS HAD "QUIVERING SPASMS" IN HER MID AND UPPER ABDOMEN AND RADIATES UP TO HER CHEST--OFF AND ON X 1 MONTH. NOT OCCURRING NOW OR EARLIER WAS SLIGHTLY SHORT OF BREATH EARLIER, BUT NOT NOW NO NAUSEA/VOMITING/DIARRHEA/CONSTIPATION NO URINARY SYMPTOMS NO FEVER/SWEATS/CHILLS STATES SHE WAS DIZZY EARLIER, BUT NOT NOW. NO HISTORY OF SIMILAR PT STATES SHE HAS HAD STENTS IN HER AORTA AND BILATERAL ILIAC ARTERIES AND THEN IN HER LEFT CAROTID PCP: DR. 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 [place] Allergies and Home Medications Allergies Coded Allergies: iodine (Verified Allergy, Severe, 12/25/17) hydrocodone (Verified Allergy, Unknown, 12/25/17) morphine (Verified Allergy, Unknown, 12/25/17) Uncoded Allergies: IV DYE (Allergy, Severe, 10/25/17) MULTIPLE ANTIBIOTICS (Allergy, Unknown, 10/19/16) Home Medications Aspirin 81 Mg Tablet., 81 MG PO, (Reported) Clopidogrel Bisulfate 75 Mg Tablet, #30 (Reported) Dicyclomine HCl 20 Mg Tablet, 20 MG PO Q6H, #20 Prescribed by: MONICA BROTHERS on 12/25/172057 Hyoscyamine Sulfate 0.125 Mg Tab.subl, 1-2 TAB SL Q4H, #15 Prescribed by: MONICA BROTHERS on 12/25/172057 Lisinopril 10 Mg Tablet, 10 MG PO DAILY, (Reported) Metoprolol Tartrate 50 Mg Tablet, #60 (Reported) Pantoprazole Sodium 40 Mg Tablet., 40 MG PO DAILY, #15 Prescribed by: MONICA BROTHERS on 12/25/172057 Review of Systems Constitutional: see HPI, No chills, No diaphoresis, dizziness, No fever, No malaise, No weakness EENTM: No Symptoms Reported Respiratory: See HPI Cardiovascular: See HPI Gastrointestinal: See HPI Genitourinary: No Symptoms Reported Musculoskeletal: no symptoms reported Skin: no symptoms reported Psychiatric/Neurological: Anxiety, Denies Headache, Denies Numbness, Denies Paresthesia, Denies Seizure, Denies Tingling, Denies Weakness Endocrine: No Symptoms Reported Hematologic/Lymphatic: No Symptoms Reported Past [id number]-Zmreqq Hx Patient Social History Alcohol Use: Denies Use Recreational Drug Use: No Smoking Status: Current Everyday Smoker (2 PPD) Type Used: Cigarettes (2 PPD) 2nd Hand Smoke Exposure: Yes Recent Foreign Travel: No Contact w/Someone Who Travel: No Recent Infectious Disease Expo: No Recent Hopitalizations: No Physical Abuse: No Sexual Abuse: No Mistreated: No Fear: No Immunizations Up To Date Tetanus Booster (TDap): Unknown Seasonal Allergies Seasonal Allergies: No Surgeries History of Surgeries: Yes (BILATERAL ILIAC STENTS AND AORTIC STENT; ; BREAST BIOPSY; L KNEE; LEFT CAROTID STENT 07/2017) Surgeries: Appendectomy, Breast, Cardiac, Orthopedic, Vascular Surgery Respiratory History of Respiratory Disorde: Yes (tobaccoism) Cardiovascular History of Cardiac Disorders: Yes (CAROTID DISEASE; ILIAC AND AORTIC STENTS) Cardiac Disorders: Coronary Artery Disease, High Cholesterol, Hypertension, Peripheral Vascular Neurological History of Neurological Disord: Yes (occasional headaches.) Neurological Disorders: Headaches /Migraines Reproductive System [employer] PICKER History: Menopausal Genitourinary History of Genitourinary Disor: No Gastrointestinal History of Gastrointestinal Di: No Musculoskeletal History of Musculoskeletal Dis: No Endocrine History of Endocrine Disorders: No HEENT History of HEENT Disorders: Yes HEENT Disorders: Cataract Cancer History of Cancer: No Psychosocial History of Psychiatric Problem: No Suicide Risk Score: 0 Integumentary History of Skin or Integumenta: No Blood Transfusions History of Blood Disorders: No Family Medical History Significant Family History: No Pertinent Family Hx Physical Exam Vital Signs VS - Last 72 Hours, by Label 12/25/17 12/25/17 12/25/17 19:30 19:43 21:29 Temp 97.9 Pulse 101 79 Resp 30 19 B/P (MAP) 163/78 (106) Pulse Ox 97 96 100 O2 Delivery Nasal Cannula O2 Flow Rate 2.00 Capillary Refill : Less Than 3 Seconds General Appearance: no apparent distress, obese, other (ANXIOUS, REEKS OF CIGARETTES) HEENT: PERRL/EOMI Neck: non-tender, full range of motion, supple, normal inspection Respiratory: chest non-tender, normal breath sounds, no respiratory distress, no accessory muscle use Cardiovascular: normal peripheral pulses, regular rate, rhythm, no edema, no JVD, no murmur Peripheral Pulses: 1+ Dorsalis Pedis (R), 1+ Left Dors-Pedis (L) Gastrointestinal: normal bowel sounds, non tender, soft Extremities: normal range of motion, non-tender, normal inspection, no pedal edema, no calf tenderness, normal capillary refill Back: normal inspection, no CVA tenderness, no vertebral tenderness 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, no motor/sensory deficits, alert, normal mood/affect, oriented x 3 Skin: normal color, warm/dry Progress/Results/Core Measures Results/Orders Lab Results Laboratory Tests Test 12/25/17 19:43 Range/Units White Blood Count 9.8 4.3-11.0 10^3/uL Red Blood Count 4.22 L 4.35-5.85 10^6/uL Hemoglobin 13.9 11.5-16.0 G/DL Hematocrit 40 35-52 % Mean Corpuscular Volume 95 80-99 FL Mean Corpuscular Hemoglobin 33 25-34 PG Mean Corpuscular Hemoglobin Concent 35 32-36 G/DL Red Cell Distribution Width 13.6 10.0-14.5 % Platelet Count 301 130-400 10^3/uL Mean Platelet Volume 9.7 7.4-10.4 FL Neutrophils (%) (Auto) 34 L 42-75 % Lymphocytes (%) (Auto) 54 H 12-44 % Monocytes (%) (Auto) 10 0-12 % Eosinophils (%) (Auto) 2 0-10 % Basophils (%) (Auto) 1 0-10 % Neutrophils # (Auto) 3.3 1.8-7.8 X 10^3 Lymphocytes # (Auto) 5.3 H 1.0-4.0 X 10^3 Monocytes # (Auto) 1.0 0.0-1.0 X 10^3 Eosinophils # (Auto) 0.2 0.0-0.3 10^3/uL Basophils # (Auto) 0.1 0.0-0.1 10^3/uL Prothrombin Time 12.2 12.2-14.7 SEC INR Comment 0.9 0.8-1.4 Activated Partial Thromboplast Time 27 24-35 SEC Sodium Level 141 135-145 MMOL/L Potassium Level 3.8 3.6-5.0 MMOL/L Chloride Level 109 H 98-107 MMOL/L Carbon Dioxide Level 20 L 21-32 MMOL/L Anion Gap 12 5-14 MMOL/L Blood Urea Nitrogen 12 7-18 MG/DL Creatinine 0.77 0.60-1.30 MG/DL Estimat Glomerular Filtration Rate > 60 BUN/Creatinine Ratio 16 Glucose Level 110 H 70-105 MG/DL Calcium Level 9.1 8.5-10.1 MG/DL Magnesium Level 2.1 1.8-2.4 MG/DL Total Bilirubin 0.3 0.1-1.0 MG/DL Aspartate Amino Transf (AST/SGOT) 12 5-34 U/L Alanine Aminotransferase (ALT/SGPT) 9 0-55 U/L Alkaline Phosphatase 103 40-136 U/L Total Creatine Kinase 97 29-168 U/L Creatine Kinase MB 1.7 <6.6 NG/ML Troponin I < 0.30 <0.30 NG/ML B-Type Natriuretic Peptide 19.1 <100.0 PG/ML Total Protein 7.7 6.4-8.2 GM/DL Albumin 4.1 3.2-4.5 GM/DL Amylase Level 49 25-125 U/L Lipase 38 8-78 U/L My Orders Orders - MONICA BROTHERS DO Amylase (12/25/17 19:34) Cbc With Automated Diff (12/25/17 19:34) Comprehensive Metabolic Panel (12/25/17 19:34) Creatine Kinase (12/25/17 19:34) Creatine Kinase Mb (12/25/17 19:34) Lipase (12/25/17 19:34) Partial Thromboplastin Time (12/25/17 19:34) Protime With Inr (12/25/17 19:34) Troponin I (12/25/17 19:34) Chest 1 View, Ap/Pa Only (2/9/18 19:34) O2 (12/25/17 19:34) Ekg Tracing (12/25/17 19:34) Aspirin Chewable Tablet (Baby Aspirin Ch (12/25/17 19:45) BNP (12/25/17 19:34) Monitor-Rhythm Ecg Trace Only (12/25/17 19:34) Magnesium (12/25/17 19:34) Aspirin Chewable Tablet (Baby Aspirin Ch (12/25/17 19:45) Nitroglycerin 0.4 Mg Btl 25's (Nitrostat (12/25/17 19:45) Ct Chest/Abdomen/Pelvis Wo (12/25/17 20:21) Pantoprazole Tablet (Protonix Tablet) (12/25/17 21:00) Rx-Dicyclomine Capsule (Rx-Bentyl Capsul (12/25/17 21:00) Rx-Hyoscyamine Tab (Rx-Levsin Sl) (12/25/17 21:00) Vital Signs/I&O Vital Sign - Last 12Hours 12/25/17 12/25/17 12/25/17 19:30 19:43 21:29 Temp 97.9 Pulse 101 79 Resp 30 19 B/P (MAP) 163/78 (106) Pulse Ox 97 96 100 O2 Delivery Nasal Cannula O2 Flow Rate 2.00 Blood Pressure Mean: 106 Progress Note : Progress Note ASYMPTOMATIC IN ER OTHER THAN NAUSEA JUST PRIOR TO DISMISSAL-IS A FREQUENT PROBLEM, PER PT. HAS ZOFRAN AT HOME ECG Initial ECG Impression Date: Dec 25, 2017 Initial ECG Impression Time: 19:35 Initial ECG Rate: 91 Initial ECG Rhythm: Normal Sinus Initial ECG Impression: Nonspecific Changes Initial ECG Comparisson: No Previous ECG Available Diagnostic Imaging Comments CXR--NO ACUTE PROCESS, PER RADIOLOGIST REPORT @ 2003 CT CHEST/ABDOMEN/PELVIS--NO ACUTE PROCESS, PER RADIOLOGIST REPORT @ 2044 Reviewed: Reviewed by Me Departure Impression Impression: Primary Impression: Abdominal pain Disposition: 01 HOME, SELF-CARE Condition: Improved Departure-Patient Inst. Referrals: DARRYL WHITTAKER MD (PCP/Family) Primary Care Physician Patient Instructions: Acute Abdomen (Belly Pain), Adult (DC) Add. Discharge Instructions: CLEAR LIQUIDS FOR 24 HOURS, THEN START A BLAND DIET--NO SPICY, GREASY/HIGH FAT OR ACIDIC FOOD OR DRINK FOLLOW UP WITH YOUR DR IN 3-4 DAYS FOR FURTHER CARE TAKE YOUR ZOFRAN NEEDED FOR NAUSEA RETURN TO ER IF SYMPTOMS WORSEN All discharge instructions reviewed with patient and/or family. Voiced understanding. Scripts Dicyclomine HCl (Dicyclomine HCl) 20 Mg Tablet 20 MG PO Q6H for Abdominal Pain, #20 TAB Prov: MONICA BROTHERS DO 12/25/17 Hyoscyamine Sulfate (Levsin-Sl) 0.125 Mg Tab.subl 1-2 TAB SL Q4H for Abdominal Pain, #15 TAB Prov: MONICA BROTHERS DO 12/25/17 Pantoprazole Sodium (Protonix) 40 Mg Tablet.dr 40 MG PO DAILY, #15 TAB Prov: MONICA BROTHERS DO 12/25/17 MONICA BROTHERS DO Dec 25, 2017 20:04
[2017-12-25 20:16] LABS: ALANINE AMINOTRANSFERASE 9 U/L (0-55); ALBUMIN 4.1 GM/DL (3.2-4.5); ALKALINE PHOSPHATASE 103 U/L (40-136); AMYLASE 49 U/L (25-125); BILIRUBIN,TOTAL 0.3 MG/DL (0.1-1.0); BUN/CREATININE RATIO 16; CALCIUM 9.1 MG/DL (8.5-10.1); CARBON DIOXIDE 20 MMOL/L (21-32); CHLORIDE 109 MMOL/L (98-107); CREATINE KINASE 97 U/L (29-168); CREATININE SERUM 0.77 MG/DL (0.60-1.30); GFR ESTIMATED > 60; GLUCOSE 110 MG/DL (70-105); LIPASE 38 U/L (8-78); MAGNESIUM 2.1 MG/DL (1.8-2.4); POTASSIUM 3.8 MMOL/L (3.6-5.0); SODIUM 141 MMOL/L (135-145); TOTAL PROTEIN 7.7 GM/DL (6.4-8.2)
[2017-12-25 20:22] LABS: CREATINE KINASE MB 1.7 NG/ML (<6.6)
--- NOTE | 2017-12-25 20:43 | Diagnostic Imaging Report ---
PROCEDURE: CT chest, abdomen, and pelvis without contrast. TECHNIQUE: Multiple contiguous axial images were obtained through the chest, abdomen, and pelvis without the use of intravenous contrast. INDICATION: Chest pain. Feels like chest burst open. CT chest: The lungs are clear. There is no effusion or pneumothorax. There is no mediastinal mass or hemorrhage. There is no aortic aneurysm. Dissection or pulmonary embolus cannot be evaluated without contrast. There is no bony abnormality. The liver, gallbladder and bile ducts are normal. The spleen, pancreas and adrenals are normal. The kidneys, ureters and bladder are normal. There is diverticulosis of colon with no evidence of diverticulitis or other acute bowel abnormality. There is scattered calcifications of the abdominal aorta with no aneurysm seen. No retroperitoneal hemorrhage is evident. There is no free intraperitoneal air or fluid. There is no acute bony abnormality. IMPRESSION: CT of the chest shows no acute abnormality. CT of the abdomen and pelvis shows no acute abnormality. Dictated by: Dictated on workstation # [id number]
[2017-12-25] MEDS ORDERED: HYOS0.1283 SL (20:58)
[2017-12-25] MEDS ORDERED: PANT40TA2 PO (20:58)
[2017-12-25] MEDS ORDERED: DICY20TA10 PO (20:58)
[2017-12-25] MEDS ORDERED: RX-HYOSCYAMINE 0.125 MG SL (LEVSIN) PPK#6 SL STA (21:00)
[2017-12-25] MEDS ORDERED: RX-DICYCLOMINE 10 MG (BENTYL) CAP PPK#4 PO STA (21:00)
[2017-12-25] MEDS ORDERED: PANTOPRAZOLE 40 MG (PROTONIX) TAB PO ONE (21:00)
[2017-12-25 21:29] VITALS: BP 130/52
== END 2017-12-25 21:29 | disposition home or self-care (01) ==
LOC: EDUNIT# 19:20 → ER 19:21
DX: R10.13 Epigastric pain (principal); G43.909 Migraine, unspecified, not intractable, without status migrainosus; I25.10 Atherosclerotic heart disease of native coronary artery without angina pectoris; E78.00 Pure hypercholesterolemia, unspecified; I10 Essential (primary) hypertension; F17.210 Nicotine dependence, cigarettes, uncomplicated; Z88.1 Allergy status to other antibiotic agents; Z88.6 Allergy status to analgesic agent; Z91.048 Other nonmedicinal substance allergy status; Z79.82 Long term (current) use of aspirin; Z90.49 Acquired absence of other specified parts of digestive tract; Z95.5 Presence of coronary angioplasty implant and graft
CPT/HCPCS: 36415; 71045; 71250; 74176; 80053; 82150; 82550; 82553; 83690; 83735; 83880; 84484; 85025; 85610; 85730; 93005; 93041

== ENCOUNTER 2018-11-09 23:17 | Emergency (ER) | payer MEDICARE, OTHER ==
[~2018-11-09] VITALS: Ht 160 cm; Wt 81.2 kg
[~2018-11-09 23:17] MED LIST changes: +DICY20TA10 PO; +HYOS0.1283 SL; +PANT40TA2 PO
[2018-11-10] MEDS ORDERED: ACETAMINOPHEN 500 MG TAB (TYLENOL) PO ONE (00:15)
[2018-11-10 00:40] LABS: BASOPHILS % (AUTO) 1 % (0-10); EOSINOPHILS # (AUTO) 0.2 10^3/uL (0.0-0.3); EOSINOPHILS % (AUTO) 2 % (0-10); HEMATOCRIT 38 % (35-52); HEMOGLOBIN 12.6 G/DL (11.5-16.0); LYMPHOCYTES # (AUTO) 3.4 X 10^3 (1.0-4.0); LYMPHOCYTES % (AUTO) 40 % (12-44); MEAN CORPUSCULAR HEMOGLOBIN 33 PG (25-34); MEAN CORPUSCULAR HGB CONC 34 G/DL (32-36); MEAN CORPUSCULAR VOLUME 97 FL (80-99); MEAN PLATELET VOLUME 9.2 FL (7.4-10.4); MONOCYTES % (AUTO) 12 % (0-12); NEUTROPHILS # (AUTO) 3.9 X 10^3 (1.8-7.8); NEUTROPHILS % (AUTO) 46 % (42-75); PLATELET COUNT 286 10^3/uL (130-400); RED BLOOD COUNT 3.87 10^6/uL (4.35-5.85); RED CELL DISTRIBUTION WIDTH 14.1 % (10.0-14.5); WHITE BLOOD COUNT 8.4 10^3/uL (4.3-11.0)
[2018-11-10 00:56] LABS: FIBRIN DEGRADATION PRODUCTS 1.02 UG/ML (0.00-0.49); PROTHROMBIN TIME PATIENT 13.6 SEC (12.2-14.7)
[2018-11-10 01:10] LABS: ALANINE AMINOTRANSFERASE 10 U/L (0-55); ALBUMIN 3.9 GM/DL (3.2-4.5); ALKALINE PHOSPHATASE 79 U/L (40-136); BILIRUBIN,TOTAL 0.3 MG/DL (0.1-1.0); BUN/CREATININE RATIO 24; CALCIUM 8.6 MG/DL (8.5-10.1); CARBON DIOXIDE 21 MMOL/L (21-32); CHLORIDE 110 MMOL/L (98-107); CREATININE SERUM 0.75 MG/DL (0.60-1.30); GFR ESTIMATED > 60; GLUCOSE 100 MG/DL (70-105); POTASSIUM 3.9 MMOL/L (3.6-5.0); SODIUM 141 MMOL/L (135-145); TOTAL PROTEIN 6.8 GM/DL (6.4-8.2)
[2018-11-10 01:49] LABS: BILIRUBIN,URINE NEGATIVE (NEGATIVE); CLARITY,URINE CLEAR; COLOR,URINE YELLOW; GLUCOSE, URINE (UA) NEGATIVE (NEGATIVE); KETONES,URINE NEGATIVE (NEGATIVE); LEUKOCYTE ESTERASE ,URINE 2+ (NEGATIVE); NITRITE,URINE POSITIVE (NEGATIVE); PH,URINE 5 (5-9); PROTEIN,URINE NEGATIVE (NEGATIVE); UROBILINOGEN,URINE NORMAL (NORMAL)
[2018-11-10 01:57] LABS: BACTERIA,URINE MODERATE /HPF; SQUAMOUS EPITHELIAL CELL,UR 0-2 /HPF
--- NOTE | 2018-11-10 02:04 | ED Headache ---
General Chief Complaint: Head/Cervical Problems Stated Complaint: POSS STROKE Nursing Triage Note: Pt reports feeling a pop in head, "like a gun going off" and then pt reports burning pain in the head. Pt reports this occured at approximately 1100. Pt also c/o nausea. Nursing Sepsis Screen: No Definite Risk Allergies and Home Medications Allergies Coded Allergies: iodine (Verified Allergy, Severe, 12/25/17) hydrocodone (Verified Allergy, Unknown, 12/25/17) morphine (Verified Allergy, Unknown, 12/25/17) Uncoded Allergies: IV DYE (Allergy, Severe, 10/25/17) MULTIPLE ANTIBIOTICS (Allergy, Unknown, 10/19/16) Home Medications Dicyclomine HCl 20 Mg Tablet, 20 MG PO Q6H Prescribed by: MONICA BROTHERS on 12/25/172057 Hyoscyamine Sulfate 0.125 Mg Tab.subl, 1-2 TAB SL Q4H Prescribed by: MONICA BROTHERS on 12/25/172057 Lisinopril 10 Mg Tablet, 10 MG PO DAILY, (Reported) Pantoprazole Sodium 40 Mg Tablet.dr, 40 MG PO DAILY Prescribed by: MONICA BROTHERS on 12/25/172057 Past Mzlijqi-Lueeuy-Wjkvlm Hx Patient Social History Alcohol Use: Denies Use Recreational Drug Use: No Type Used: Cigarettes 2nd Hand Smoke Exposure: Yes Recent Foreign Travel: No Contact w/Someone Who Travel: No Recent Infectious Disease Expo: No Recent Hopitalizations: No Physical Abuse: No Sexual Abuse: No Immunizations Up To Date Tetanus Booster (TDap): Unknown Seasonal Allergies Seasonal Allergies: No Past Medical History Surgeries: Yes Appendectomy, Breast, Cardiac, Orthopedic, Vascular Surgery Respiratory: Yes (tobaccoism) Cardiac: Yes (CAROTID DISEASE; ILIAC AND AORTIC STENTS) Coronary Artery Disease, High Cholesterol, Hypertension, Peripheral Vascular Neurological: Yes (occasional headaches.) Headaches /Migraines [place] History: Menopausal Genitourinary: No Gastrointestinal: No Musculoskeletal: No Endocrine: No HEENT: Yes Cataract Cancer: No Psychosocial: No Integumentary: No Blood Disorders: No Family Medical History No Pertinent Family Hx Physical Exam Vital Signs Vital Signs - First Documented 11/09/18 23:17 Temp 98.4 Pulse 102 Resp 22 B/P (MAP) 174/84 (114) Pulse Ox 98 O2 Delivery Room Air Capillary Refill : Less Than 3 Seconds Height, Weight, BMI Height: 5'3.00" Weight: 179lbs. oz. 81.866959rx; BMI Method:Stated Progress/Results/Core Measures Results/Orders Lab Results Laboratory Tests Test 11/10/18 00:30 11/10/18 01:28 11/10/18 01:40 Range/Units White Blood Count 8.4 4.3-11.0 10^3/uL Red Blood Count 3.87 L 4.35-5.85 10^6/uL Hemoglobin 12.6 11.5-16.0 G/DL Hematocrit 38 35-52 % Mean Corpuscular Volume 97 80-99 FL Mean Corpuscular Hemoglobin 33 25-34 PG Mean Corpuscular Hemoglobin Concent 34 32-36 G/DL Red Cell Distribution Width 14.1 10.0-14.5 % Platelet Count 286 130-400 10^3/uL Mean Platelet Volume 9.2 7.4-10.4 FL Neutrophils (%) (Auto) 46 42-75 % Lymphocytes (%) (Auto) 40 12-44 % Monocytes (%) (Auto) 12 0-12 % Eosinophils (%) (Auto) 2 0-10 % Basophils (%) (Auto) 1 0-10 % Neutrophils # (Auto) 3.9 1.8-7.8 X 10^3 Lymphocytes # (Auto) 3.4 1.0-4.0 X 10^3 Monocytes # (Auto) 1.0 0.0-1.0 X 10^3 Eosinophils # (Auto) 0.2 0.0-0.3 10^3/uL Basophils # (Auto) 0.0 0.0-0.1 10^3/uL Prothrombin Time 13.6 12.2-14.7 SEC INR Comment 1.0 0.8-1.4 Activated Partial Thromboplast Time 29 24-35 SEC D-Dimer 1.02 H 0.00-0.49 UG/ML Sodium Level 141 135-145 MMOL/L Potassium Level 3.9 3.6-5.0 MMOL/L Chloride Level 110 H 98-107 MMOL/L Carbon Dioxide Level 21 21-32 MMOL/L Anion Gap 10 5-14 MMOL/L Blood Urea Nitrogen 18 7-18 MG/DL Creatinine 0.75 0.60-1.30 MG/DL Estimat Glomerular Filtration Rate > 60 BUN/Creatinine Ratio 24 Glucose Level 100 70-105 MG/DL Calcium Level 8.6 8.5-10.1 MG/DL Corrected Calcium 8.7 8.5-10.1 MG/DL Total Bilirubin 0.3 0.1-1.0 MG/DL Aspartate Amino Transf (AST/SGOT) 12 5-34 U/L Alanine Aminotransferase (ALT/SGPT) 10 0-55 U/L Alkaline Phosphatase 79 40-136 U/L Troponin I < 0.30 <0.30 NG/ML Total Protein 6.8 6.4-8.2 GM/DL Albumin 3.9 3.2-4.5 GM/DL Glucometer 105 70-110 MG/DL Urine Color YELLOW Urine Clarity CLEAR Urine pH 5 5-9 Urine Specific Otis 1.015 L 1.016-1.022 Urine Protein NEGATIVE NEGATIVE Urine Glucose (UA) NEGATIVE NEGATIVE Urine Ketones NEGATIVE NEGATIVE Urine Nitrite POSITIVE H NEGATIVE Urine Bilirubin NEGATIVE NEGATIVE Urine Urobilinogen NORMAL NORMAL MG/DL Urine Leukocyte Esterase 2+ H NEGATIVE Urine RBC (Auto) 1+ H NEGATIVE Urine RBC NONE /HPF Urine WBC 10-25 H /HPF Urine Squamous Epithelial Cells 0-2 /HPF Urine Crystals NONE /LPF Urine Bacteria MODERATE H /HPF Urine Casts NONE /LPF Urine Mucus NEGATIVE /LPF Urine Culture Indicated YES My Orders Orders - MONICA BROTHERS DO Cbc With Automated Diff (11/09/18 23:33) Protime With Inr (11/09/18 23:33) Partial Thromboplastin Time (11/09/18 23:33) Comprehensive Metabolic Panel (11/09/18 23:33) Fibrin Degradation Products (11/09/18 23:33) Troponin I (11/09/18 23:33) Ua Culture If Indicated (11/09/18 23:33) Chest 1 View, Ap/Pa Only (11/09/18 23:33) Ekg Tracing (11/09/18 23:33) Nothing By Mouth (11/10/18 Breakfast) Accucheck Stat ONCE (11/09/18 23:33) Saline Lock/Iv-Start (11/09/18 23:33) Saline Lock/Iv-Start (11/09/18 23:33) Vital Signs Stroke Patient Q15M (11/09/18 23:33) Ct Head Wo-R/O Stroke (11/09/18 23:33) O2 (11/09/18 23:33) Intake & Output 06,14,22 (11/09/18 23:33) Monitor-Rhythm Ecg Trace Only (11/09/18 23:33) Dysphagia Screening Tool (11/09/18 23:33) Lipid Panel (11/10/18 06:00) I-Stat Bedside Testing (11/09/18 23:33) Acetaminophen Tablet (Tylenol Tablet) (11/10/18 00:15) Urine Culture (11/10/18 01:40) Medications Given in ED Current Medications Medications Dose Ordered Sig/Dimitri Route Start Time Stop Time Status Last Admin Dose Admin Acetaminophen 1,000 mg ONCE ONCE PO 11/10/18 00:15 11/10/18 00:16 DC 11/10/18 00:29 1,000 MG Vital Signs/I&O 11/09/18 23:17 Temp 98.4 Pulse 102 Resp 22 B/P (MAP) 174/84 (114) Pulse Ox 98 O2 Delivery Room Air Blood Pressure Mean: 114 FSBG Bedside Testing Finger Stick Blood Glucose: 105 Departure Impression Primary Impression: Acute headache Disposition: 01 HOME, SELF-CARE Condition: Improved Departure-Patient Inst. Referrals: DARRYL WHITTAKER MD (PCP/Family) Primary Care Physician Patient Instructions: Headache, Adult (DC) Add. Discharge Instructions: HOME, REST TAKE YOUR MEDICATIONS PRESCRIBED TYLENOL NEEDED FOR PAIN FOLLOW UP WITH DR. WHITTAKER THIS WEEK FOR FURTHER CARE KEEP YOUR APPOINTMENT FOR VASCULAR ULTRASOUNDS THIS WEEK RETURN TO ER IF WORSE All discharge instructions reviewed with patient and/or family. Voiced understanding. MONICA BROTHERS DO Nov 10, 2018 02:04
[2018-11-10 02:12] VITALS: BP 156/76
--- NOTE | 2018-11-10 07:17 | Diagnostic Imaging Report ---
INDICATION: Headache with dizziness. Shortness of breath. Comparison with 12/25/2017. FINDINGS: Portable chest. Lungs are well-aerated without air trapping. There are no infiltrates or masses. The heart is not enlarged. No pulmonary edema. No pneumothorax or pleural effusion. No bony abnormalities. IMPRESSION: Normal portable chest. Dictated by: Dictated on workstation # [id number]
--- NOTE | 2018-11-10 07:56 | Diagnostic Imaging Report ---
PROCEDURE: CT head wo r/o stroke. TECHNIQUE: Multiple contiguous axial images were obtained through the brain without the use of intravenous contrast. INDICATION: Dizziness. Headache. FINDINGS: There is mild cortical atrophy. Mild periventricular white matter changes are present. No intracranial hemorrhage. Ventricles are not dilated. No mass effect. No extra-axial fluid collection. Basal cisterns are clear. Mastoid air cells are well aerated. No calvarial fractures. IMPRESSION: Mild chronic microvascular changes with no acute abnormalities. Dictated by: Dictated on workstation # [id number]
== END 2018-11-10 02:12 | disposition home or self-care (01) ==
LOC: EDUNIT# 23:17 → ER 23:19
DX: R51 Headache (principal); I25.10 Atherosclerotic heart disease of native coronary artery without angina pectoris; E78.00 Pure hypercholesterolemia, unspecified; I10 Essential (primary) hypertension; I73.9 Peripheral vascular disease, unspecified; Z91.041 Radiographic dye allergy status; Z88.5 Allergy status to narcotic agent; Z88.1 Allergy status to other antibiotic agents; Z90.49 Acquired absence of other specified parts of digestive tract; Z86.69 Personal history of other diseases of the nervous system and sense organs; Z77.22 Contact with and (suspected) exposure to environmental tobacco smoke (acute) (chronic)
CPT/HCPCS: 36415; 70450; 71045; 80053; 81000; 82962; 84484; 85025; 85379; 85610; 85730; 87077; 87088; 93005; 93041